=== PATIENT | male | born 1970 | race Caucasian/White ===

== ENCOUNTER 2020-04-26 12:01 | Day surgery (SDC) | payer OTHER ==
[2020-04-26] MEDS ORDERED: Xylocaine 1% Vial 30 ML PF IJ ONE (12:02)
[2020-04-26] MEDS ORDERED: Depo-Medrol 40 MG/ML IM ONE (12:02)
[2020-04-26] MEDS ORDERED: BUPIVACAINE 0.5% VIAL IJ ONE (12:02)
--- NOTE | 2020-04-27 14:56 | XRAY ---
20 seconds fluoroscopy time in surgery for bilateral SI joint injections.
--- NOTE | 2020-04-29 22:59 | XRAY ---
Indication: Bilateral SI joint injections. Intraoperative fluoroscopy was provided for 20 seconds. 4 digital spot images submitted for interpretation demonstrate a posterior spinal needle tip projected over the inferior aspect of both the left and right sacroiliac joints. Correlate with intraoperative findings/report.
== END 2020-04-26 14:11 | disposition home or self-care (01) ==
LOC: SDC-PAIN 12:01
PROVIDERS: ATTEND Psychiatry & Neurology Pain Medicine
DX: M46.1 Sacroiliitis, not elsewhere classified (principal); E11.9 Type 2 diabetes mellitus without complications; Z79.899 Other long term (current) drug therapy
CPT/HCPCS: 72202; 77002; 82962; G0260; 27096; J1030; J2001

== ENCOUNTER 2022-04-17 15:41 | Day surgery (SDC) | payer OTHER ==
[2022-04-17] MEDS ORDERED: BUPIVACAINE 0.5% VIAL IJ ONE (15:42)
[2022-04-17] MEDS ORDERED: Depo-Medrol 40 MG/ML IM ONE (15:42)
[2022-04-17] MEDS ORDERED: LIDOCAINE HCL 1% 50 MG/5 ML VL PF IJ ONE (15:42)
--- NOTE | 2022-04-17 18:25 | XRAY ---
Indication: Bilateral SI joint injection. Intraoperative fluoroscopy provided for 19 seconds. 4 digital spot image submitted for interpretation demonstrates posterior needle tip projecting over the expected left and right SI joints. Correlate with intraoperative findings/report.
--- NOTE | 2022-04-18 09:55 | XRAY ---
19 seconds of fluoroscopy was used in surgery for bilateral SI joint injections.
== END 2022-04-17 17:10 | disposition home or self-care (01) ==
LOC: SDC-PAIN 15:41
PROVIDERS: ATTEND Psychiatry & Neurology Pain Medicine
DX: M46.1 Sacroiliitis, not elsewhere classified (principal); Z79.899 Other long term (current) drug therapy
CPT/HCPCS: 27096; 72202; 77002; 82947; J1030; J2001; G0260

== ENCOUNTER 2023-07-17 12:56 | Day surgery (SDC) | payer OTHER ==
[2023-07-17] MEDS ORDERED: BUPIVACAINE 0.5% VIAL IJ ONE (12:57)
[2023-07-17] MEDS ORDERED: Depo-Medrol 40 MG/ML IM ONE (12:57)
[2023-07-17] MEDS ORDERED: XYLOCAINE-MPF 1% 5ML SDV IJ ONE (12:57)
--- NOTE | 2023-07-17 16:34 | XRAY ---
Indication: Bilateral SI joint injection. Intraoperative fluoroscopy provided for 23 seconds. 4 digital spot images submitted for interpretation demonstrates posterior needle tip projecting over the left and right SI joint. Correlate with intraoperative findings/report.
--- NOTE | 2023-07-17 16:53 | XRAY ---
23 seconds of fluoroscopy was used in surgery for a bilateral sacroiliac joint injection.
== END 2023-07-17 15:30 | disposition home or self-care (01) ==
LOC: SDC-PAIN 12:56
PROVIDERS: ATTEND Psychiatry & Neurology Pain Medicine
DX: M46.1 Sacroiliitis, not elsewhere classified (principal); Z79.899 Other long term (current) drug therapy
CPT/HCPCS: 27096; 72202; 77002; 82947; J1030; Q9966; G0260

== ENCOUNTER 2024-10-13 15:26 | Day surgery (SDC) | payer OTHER ==
[2024-10-13] MEDS ORDERED: Depo-Medrol 40 MG/ML IM ONE (15:27)
[2024-10-13] MEDS ORDERED: BUPIVACAINE 0.5% VIAL IJ ONE (15:27)
[2024-10-13] MEDS ORDERED: LIDOCAINE HCL 1% AMPUL 5 ML IJ ONE (15:27)
--- NOTE | 2024-10-13 20:22 | XRAY ---
Indication: Bilateral SI joint injection. Intraoperative fluoroscopy provided for 22 seconds. 2 digital spot images submitted for interpretation demonstrates posterior needle tips projecting over left and right SI joints. Small amount of contrast injected for needle tip placement. Correlate with intraoperative findings/report.
--- NOTE | 2024-10-13 20:27 | XRAY ---
22 seconds of fluoroscopy were used in surgery for bilateral sacroiliac joint injections.
== END 2024-10-13 18:20 | disposition home or self-care (01) ==
LOC: SDC-PAIN 15:26
PROVIDERS: ATTEND Psychiatry & Neurology Pain Medicine
DX: M46.1 Sacroiliitis, not elsewhere classified (principal); E11.9 Type 2 diabetes mellitus without complications
CPT/HCPCS: 27096; 72202; 77002; 82947; Q9966